=== PATIENT | male | born 1995 | race Caucasian/White ===

== ENCOUNTER 2020-02-21 16:57 | Emergency (ER) | payer OTHER ==
[~2020-02-21] VITALS: Ht 180.3 cm; Wt 75.0 kg
[2020-02-21] MEDS ORDERED: fentaNYL/PF 50MCG/1 ML 2ML syringe IV ONE (17:15)
[2020-02-21] MEDS ORDERED: propofol 10mg/ml 20ml vial IV ONE ×2 (17:35→17:40)
[2020-02-21] MEDS ORDERED: normal saline 1000ML IV soln IVB ONE (17:35)
--- NOTE | 2020-02-21 17:56 | NUR ---
ROOMMATE WILL PICK PT UP WHEN READY. PIO [phone]
--- NOTE | 2020-02-21 18:23 | NUR ---
report given pat rn
[2020-02-21 18:24] VITALS: BP 136/85
== END 2020-02-21 19:23 | disposition home or self-care (01) ==
LOC: ER 16:59
DX: S43.015A Anterior dislocation of left humerus, initial encounter (principal); W18.39XA Other fall on same level, initial encounter; Y93.89 Activity, other specified; Y92.89 Other specified places as the place of occurrence of the external cause; Y99.8 Other external cause status
CPT/HCPCS: 23650; 73020; 73030; 99152; 99153; 99285; J3010; J7030